=== PATIENT | female | born 1940 | race Native Hawaiian/Other Pacific Islander ===

== ENCOUNTER 2018-12-14 09:06 | Inpatient (IN) | payer SELFPAY ==
[2018-12-14] MEDS ORDERED: Sodium Chloride 0.9% 1,000 ML IV SCH (09:45)
[2018-12-14 10:22] LABS: BASO % 0.7 % (0.0-2.0); EOS % 0.5 % (0.0-4.0); HEMOGLOBIN 12.3 g/dL (11.0-16.0); LYMPH # 1.2 K/uL (1.0-4.3); LYMPH % 19.5 % (20.0-40.0); MEAN CELL VOLUME 95.3 fL (81.0-99.0); MEAN CORPUSCULAR HEMOGLOBIN 31.7 pg (27.0-31.0); MEAN CORPUSCULAR HGB CONC 33.3 g/dL (33.0-37.0); MEAN PLATELET VOLUME 9.2 fL (7.2-11.7); MONO # 0.4 K/uL (0.0-0.8); MONO % 6.1 % (0.0-10.0); NEUT # 4.6 K/uL (1.8-7.0); NEUT % 73.2 % (50.0-75.0); NRBC % 0.1 % (0.0-2.0); RBC 3.89 Mil/uL (3.80-5.20); RED CELL DISTRIBUTION WIDTH 12.9 % (11.5-14.5); WHITE BLOOD COUNT 6.3 K/uL (4.8-10.8)
[2018-12-14] MEDS ORDERED: Sodium Chloride 0.9% 1,000 ML ONE (10:22)
[2018-12-14 10:31] LABS: PROTHROMBIN TIME 11.1 SECONDS (9.7-12.2)
[2018-12-14 10:32] LABS: ALBUMIN 4.6 g/dL (3.5-5.0); ALT/SGPT 13 U/L (9-52); AST/SGOT 32 U/L (14-36); BLOOD UREA NITROGEN 38 mg/dL (7-17); CALCIUM 9.7 mg/dl (8.6-10.4); GFR NON-AFRICAN AMERICAN 31; HDL CHOLESTEROL 64 mg/dL (30-70)
--- NOTE | 2018-12-14 10:35 | CT ---
Date of service: 12/14/2018 PROCEDURE: CT HEAD WITHOUT CONTRAST. HISTORY: L sided numbness, tremors COMPARISON: None available. TECHNIQUE: Axial computed tomography images were obtained through the head/brain without intravenous contrast. Radiation dose: Total exam DLP = 862.5 mGy-cm. This CT exam was performed using one or more of the following dose reduction techniques: Automated exposure control, adjustment of the mA and/or kV according to patient size, and/or use of iterative reconstruction technique. FINDINGS: HEMORRHAGE: No intracranial hemorrhage. BRAIN: There is focal hypodensity in the posterior right temporal parietal lobe suggestive of subacute or old infarct. [id number] volume loss is noted. There is also small encephalomalacia in the anterior aspect of the left basal ganglia at or adjacent to the left caudate head. VENTRICLES: Unremarkable. No hydrocephalus. CALVARIUM: Unremarkable. PARANASAL SINUSES: Unremarkable as visualized. No significant inflammatory changes. MASTOID AIR CELLS: Unremarkable as visualized. No inflammatory changes. OTHER FINDINGS: Diffuse atherosclerotic calcification at the carotid arteries. IMPRESSION: There is no evidence of acute intracranial hemorrhage. Focal encephalomalacia at the right posterior temporal parietal lobe likely represent subacute or old infarct. Small encephalomalacia at or adjacent to the left caudate head also suggestive of lacunar infarct.
[2018-12-14 10:43] LABS: LDL CHOLESTEROL 157 mg/dL (0-129)
--- NOTE | 2018-12-14 10:49 | C.PDOC ---
History Of Present Illness History per daughter, who reports that the patient has been experiencing intermittent tremors over the past 3-4 days. The daughter reports that the patient had tremors that lasted several minutes 3 days ago and then was associated with left sided numbness which resolved. Reports that the patient developed those same symptoms at 1am this morning prompting visit. Denies fever, nausea, vomiting, diarrhea, weakness, chest pain, SOB. Time Seen by Provider: 12/14/18 09:20 Chief Complaint (Nursing): High Blood Pressure History Per: Patient, Family History/Exam Limitations: no limitations Onset/Duration Of Symptoms: Days, Intermittent Episodes Current Symptoms Are (Timing): Better (No tremors now) Recent travel outside of the [place]: No Past Medical History Reviewed: Historical Data, Nursing Documentation, Vital Signs Vital Signs: Last Vital Signs Temp 98 F 12/14/18 09:10 Pulse 80 12/14/18 09:30 Resp 20 12/14/18 09:10 BP 166/79 H 12/14/18 09:10 Pulse Ox 100 12/14/18 09:10 - Medical History PMH: HTN Family History: States: No Known Family Hx - Social History Hx Alcohol Use: No Hx Substance Use: No - Immunization History Hx Tetanus Toxoid Vaccination: No Hx Influenza Vaccination: Yes Hx Pneumococcal Vaccination: Yes Review Of Systems Constitutional: Negative for: Fever, Weakness Eyes: Negative for: Pain, Redness ENT: Negative for: Ear Pain, Mouth Swelling, Throat Swelling Cardiovascular: Negative for: Chest Pain, Palpitations, Edema, Light Headedness Respiratory: Negative for: Cough, Shortness of Breath, SOB with Excertion Genitourinary: Negative for: Dysuria Musculoskeletal: Negative for: Neck Pain Skin: Negative for: Rash, Lesions Neurological: Positive for: Numbness, Other (tremors). Negative for: Weakness Physical Exam - Physical Exam Appears: Non-toxic, No Acute Distress Skin: Normal Color, Warm, No Pale, No Rash Head: Atraumatic, Normacephalic Eye(s): bilateral: Normal Inspection Nose: Normal Oral Mucosa: Moist Tongue: Normal Appearing, No Swelling Lips: Normal Appearing, No Swelling Throat: No Erythema Neck: Normal ROM Chest: Symmetrical, No Deformity, No Tenderness Cardiovascular: Rhythm Regular, No Friction Rub, No Murmur Respiratory: Normal Breath Sounds, No Rales, No Rhonchi, No Stridor, No Wheezing Gastrointestinal/Abdominal: Bowel Sounds (active), Soft, No Tenderness Back: Normal Inspection, No CVA Tenderness Extremity: Normal ROM, No Tenderness, No Swelling Neurological/Psych: Oriented x3, Normal Speech, Normal Cognition, Normal Cranial Nerves, Normal Motor, Normal Sensation, Other (Tongue is midline, normal gaze) Gait: Steady ED Course And Treatment - Laboratory Results Result Diagrams: 12/14/18 10:07 12/14/18 10:07 ECG: Interpreted By Me ECG Rhythm: Sinus Rhythm ECG Interpretation: Normal Interpretation Of ECG: normal axis Rate From EC (bpm) O2 Sat by Pulse Oximetry: 100 (on Ra) Pulse Ox Interpretation: Normal - Radiology CXR: Interpreted by Me CXR Interpretation: No: No Acute Disease, Pnemothorax NIHSS Stroke Scale - Date/Time Evaluation Performed Date Performed: 12/14/18 Time Performed: 10:00 When Was NIHSS Performed: Baseline - How Severe is the Stoke Level of Consciousness: 0=Alert LOC to Questions: 0=Both comments correct LOC to commands: 0=Obeys both correctly Best Gaze: 0=Normal Visual: 0=No visual loss Facial: 0=Normal Motor Arm - Left: 0=No drift Motor Arm - Right: 0=No drift Motor Leg - Left: 0=No drift Motor Leg - Right: 0=No drift Limb Ataxia: 0=Absent Sensory: 0=Normal Best Language: 0=No aphasia Dysarthia: 0=Normal articulation Extinction & Inattention (Neglect): 0=Normal, no object Score: 0 rTPA Inclusion/Exclusion - Refusal of Treatment Patient Refused Treatment: No - Inclusion Criteria for Altepase Patient is 18 years or Older: Yes The Clinical Diagnosis of Ischemic Stroke That is Causing a Potentially Disabling Neurological Deficit: Yes Time of Onset is Well Established to be Less Than 270 Minute Before Treatment Would Begin: No Risk/Benefit Discussed With Patient/Family Member Present: Yes Medical Decision Making Medical Decision Making: Old records reviewed, No prior records seen. The patient reports that she currently has no symptoms at this time. The case was discussed with Dr. Rowan who states that the patient is self pay and is not the PMD, to admit to hospitalist. The case was discussed with Dr. Marina (hospitalist) who agrees to admit the patient to her service. TIA vs. seizures. The case was discussed with Dr. Estes (Neurology oncall) who requests EEG and MRI as this could be infarct vs. seizure. Disposition - Disposition Disposition: HOSPITALIZED Disposition Time: 12:41 Condition: FAIR - POA Present On Arrival: None - Clinical Impression Clinical Impression: TIA (transient ischemic attack), Tremor of both hands
[2018-12-14 12:38] LABS: B-TYPE NATRIURETIC PEPTIDE 255 pg/mL (0-900)
[2018-12-14] MEDS ORDERED: Glucagon Recombinant 1 mg Inj IM PRN (12:43)
[2018-12-14] MEDS ORDERED: Dextrose 50% SYRINGE Inj (50 ml) IV PRN (12:43)
--- NOTE | 2018-12-14 13:06 | RAD ---
Date of service: 12/14/2018 HISTORY: Code Stroke COMPARISON: No prior. FINDINGS: LUNGS: No active pulmonary disease. PLEURA: No significant pleural effusion identified, no pneumothorax apparent. CARDIOVASCULAR: No aortic atherosclerotic calcification present. Normal cardiac size. No pulmonary vascular congestion. OSSEOUS STRUCTURES: No significant abnormalities. VISUALIZED UPPER ABDOMEN: Normal. OTHER FINDINGS: None. IMPRESSION: No active disease.
--- NOTE | 2018-12-14 13:43 | CP.PCM.HP ---
History of Present Illness - History of Present Illness History of Present Illness: This is an 78 yo female, originally from [facility], with past medical hx of hypertension, presenting to [facility] today with chief complaint of numbness. Patient does not speak japanese. She is present today with her daughter , , and family friend. Daughter provides translation. Patient says that one week ago she started feeling numbness in her left hand and along her left leg. This occurred on 12/04/2018. Sensation went away and the next day daughter took patient to see primary doctor Nicky Schwarz. Sensation started again last night around 1 am. Patient was in bed with at the time. Patient and told daughter who was at work and then went to sleep. Upon awaking, patient's daughter brought patient into ER. Denies any associated sx including chest pain, shortness of breath, fevers, chills, blurry vision. The patient denies numbness at time of interview. Denies any previous heart attack or str zachariah. Of note, the patient is a former smoker. PMD: Dr. Nicky Schwarz; last visit approximately 1 week ago PMH: HTN, tobacco abuse PSH: None Allergies: NKDA FH: Non contributory Home meds: losartan/HCTZ Social: former smoker. smoker for over 10 years, but quit some time ago. Denies any significant secondhand smoke exposure. No drinking. No drug use. Born in [facility]. Able to maintain all ADLs. 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 Lives with , daughter, and family friend. Advance directive : none Code status: full code at this time Present on Admission - Present on Admission Any Indicators Present on Admission: No History of DVT/PE: No History of Uncontrolled Diabetes: No Urinary Catheter: No Decubitus Ulcer Present: No Review of Systems - Constitutional Constitutional: absent: Chills, Fever - EENT Eyes: absent: Blurred Vision, Change in Vision Ears: absent: Decreased Hearing, Tinnitus, Abnormal Hearing Nose/Mouth/Throat: absent: Nasal Congestion, Nasal Discharge - Cardiovascular Cardiovascular: absent: Chest Pain, Chest Pain at Rest, Dyspnea - Respiratory Respiratory: absent: Dyspnea, Hemoptysis - Gastrointestinal Gastrointestinal: absent: Abdominal Pain, Constipation - Genitourinary Genitourinary: absent: Change in Urinary Stream, Difficulty Urinating - Musculoskeletal Musculoskeletal: Numbness. absent: Back Pain, Neck Pain - Integumentary Integumentary: absent: Pruritus, Rash - Neurological Neurological: Numbness. absent: Abnormal Gait, Weakness - Psychiatric Psychiatric: absent: Anxiety, Hallucinations - Endocrine Endocrine: absent: Change in Body Appearance, Excessive Sweating - Hematologic/Lymphatic Hematologic: absent: Easy Bleeding, Easy Bruising Past Patient History - Infectious Disease Hx of Infectious Diseases: None - Tetanus Immunizations Tetanus Immunization: Unknown - Past Social History Smoking Status: Former Smoker Chewing Tobacco Use: No Cigar Use: No Alcohol: None Drugs: Denies Home Situation {Lives}: With Family Domestic Violence: Negative - CARDIAC Hx Hypertension: Yes - PSYCHIATRIC Hx Substance Use: No - SURGICAL HISTORY Hx Surgeries: No - ANESTHESIA Hx Anesthesia: No Hx Anesthesia Reactions: No Meds Allergies/Adverse Reactions: Allergies Allergy/AdvReac Type Severity Reaction Status Date / Time No Known Allergies Allergy Verified 12/14/18 09:54 Physical Exam - Constitutional Appears: Non-toxic, No Acute Distress - Head Exam Head Exam: ATRAUMATIC, NORMAL INSPECTION, NORMOCEPHALIC - Eye Exam Eye Exam: EOMI - ENT Exam ENT Exam: Mucous Membranes Moist - Neck Exam Neck exam: Positive for: Full Rom, Normal Inspection - Respiratory Exam Respiratory Exam: NORMAL BREATHING PATTERN. absent: Respiratory Distress - Cardiovascular Exam Cardiovascular Exam: REGULAR RHYTHM, +S1, +S2 - GI/Abdominal Exam GI & Abdominal Exam: Normal Bowel Sounds, Soft. absent: Tenderness - Extremities Exam Extremities exam: Positive for: full ROM, normal inspection - Back Exam Back exam: NORMAL INSPECTION - Neurological Exam Neurological exam: Alert, CN II-XII Intact, Oriented x3 Additional comments: NIH stoke scale of 0- documented at 1:19 PM full muscle strength throughout negative Babinski no nystagmus, facial droop sensation intact heel to matias normal mental status normal speech normal - Psychiatric Exam Psychiatric exam: Normal Affect, Normal Mood - Skin Skin Exam: Dry, Intact, Normal Color, Warm Results - Vital Signs Recent Vital Signs: Last Vital Signs Temp 98.1 F 12/14/18 12:28 Pulse 92 H 12/14/18 13:12 Resp 17 12/14/18 13:12 BP 134/68 12/14/18 13:12 Pulse Ox 98 12/14/18 13:12 - Labs Result Diagrams: 12/14/18 10:07 12/14/18 10:07 Labs: Laboratory Results - last 24 hr 12/14/18 12/14/18 12/14/18 10:07 10:07 10:07 WBC 6.3 RBC 3.89 Hgb 12.3 Hct 37.1 MCV 95.3 MCH 31.7 H MCHC 33.3 RDW 12.9 Plt Count 229 MPV 9.2 Neut % (Auto) 73.2 Lymph % (Auto) 19.5 L [place] % (Auto) 6.1 Eos % (Auto) 0.5 Baso % (Auto) 0.7 Neut # (Auto) 4.6 Lymph # (Auto) 1.2 [place] # (Auto) 0.4 Eos # (Auto) 0.0 Baso # (Auto) 0.0 PT 11.1 INR 1.0 APTT 35 H Sodium 133 Potassium 4.7 Chloride 98 Carbon Dioxide 25 Anion Gap 15 BUN 38 H Creatinine 1.6 H Est GFR ( Amer) 38 Est GFR (Non-Af Amer) 31 POC Glucose (mg/dL) Random Glucose 266 H Hemoglobin A1c Calcium 9.7 Total Bilirubin 0.5 AST 32 ALT 13 Alkaline Phosphatase 82 Troponin I < 0.0120 NT-Pro-B Natriuret Pep 255 Total Protein 9.2 H Albumin 4.6 Globulin 4.5 H Albumin/Globulin Ratio 1.0 Triglycerides 150 H Cholesterol 266 H LDL Cholesterol Direct 157 H HDL Cholesterol 64 Blood Type Antibody Screen 12/14/18 12/14/18 12/14/18 10:07 10:21 10:47 WBC RBC Hgb Hct MCV MCH MCHC RDW Plt Count MPV Neut % (Auto) Lymph % (Auto) [place] % (Auto) Eos % (Auto) Baso % (Auto) Neut # (Auto) Lymph # (Auto) [place] # (Auto) Eos # (Auto) Baso # (Auto) PT INR APTT Sodium Potassium Chloride Carbon Dioxide Anion Gap BUN Creatinine Est GFR ( Amer) Est GFR (Non-Af Amer) POC Glucose (mg/dL) 220 H Random Glucose Hemoglobin A1c 6.8 H Calcium Total Bilirubin AST ALT Alkaline Phosphatase Troponin I NT-Pro-B Natriuret Pep Total Protein Albumin Globulin Albumin/Globulin Ratio Triglycerides Cholesterol LDL Cholesterol Direct HDL Cholesterol Blood Type O POSITIVE Antibody Screen Negative Assessment & Plan - Assessment and Plan (Free Text) Assessment: This is a very pleasant 78 yo Portuguese female with 1. Sensory/loss numbness -likely secondary to TIA vs. stroke vs. seizure/post ictal state -given asa 325 mg in ER -neuro consult. Dr. Estes. recs appreciated -head CT pending -will likely need asa 81 mg po daily -start crestor 5 mg po HS -speech and swallow evaluation -neurochecks -NS 50 cc/hr -SCDs -as long as no hemorrhagic component, will need chemical prophylatic anticoagulation -will likely need EEG and MRI -physical therapy evaluation -NIH stroke scale of 0 -initial troponin negative -will trend troponins and EKGs -fall precautions -seizure precautions -monitor on telemetry floor 2. Hx of DM -previously diabetic status was unknown to pt -HGB a1C -start statin nightly -ISS low dose -hypoglycemia protocol -will need outpatient diabetic preventive measures -a1c already near goal given patient's age 3. Acute renal failure -unclear etiology -unclear previous baseline -NS 50 cc/hr -repeat am labs 4. hx of HTN -hold home losartan/HCTZ -continue to monitor 5. Dyslipidemia -pt has elevated LDL and high TGs -start statin PO HS 5. screening for colon cancer -pt denies any previous colonoscopy 6. screening for breast/cervical cancer -will inquire pap smear/mammogram status 7. GI/DVT ppx -scds -GI not indicated discussed with Dr. Marina
[2018-12-14] MEDS: (Novolin R) Insulin Human Regular 100 units/ml vial SC SCH ×2 (17:45→22:17)
--- NOTE | 2018-12-14 18:22 | CP.PCM.CON ---
History of Present Illness - History of Present Illness History of Present Illness: Neurology Consultation Note: Consult requested by Dr. Marina Mrs. Hill is an 78-year-old woman with a past medical history of smoking and hypertension, who has been having left side numbness on and off for the last 10 days. She was brought in to the ED, and a non-contrast CT scan of the head was done that showed a right parietal lobe subacute to chronic infarct as well as a chronic left caudate infarct. She was admitted for stroke work-up and management. She was not a candidate for IV tPA due to being outside the time window. Review of Systems - Review of Systems All systems: reviewed and no additional remarkable complaints except Past Patient History - Infectious Disease Hx of Infectious Diseases: None - Tetanus Immunizations Tetanus Immunization: Unknown - Past Medical History & Family History Past Medical History?: Yes - Past Social History Smoking Status: Former Smoker - CARDIAC Hx Cardiac Disorders: Yes Hx Hypertension: Yes - PULMONARY Hx Respiratory Disorders: No - NEUROLOGICAL Hx Neurological Disorder: No - HEENT Hx HEENT Problems: No - RENAL Hx Chronic Kidney Disease: No - ENDOCRINE/METABOLIC Hx Endocrine Disorders: No - HEMATOLOGICAL/ONCOLOGICAL Hx Blood Disorders: No - INTEGUMENTARY Hx Dermatological Problems: No - MUSCULOSKELETAL/RHEUMATOLOGICAL Hx Musculoskeletal Disorders: No Hx Falls: No - GASTROINTESTINAL Hx Gastrointestinal Disorders: No - GENITOURINARY/GYNECOLOGICAL Hx Genitourinary Disorders: No - PSYCHIATRIC Hx Psychophysiologic Disorder: No Hx Substance Use: No - SURGICAL HISTORY Hx Surgeries: No - ANESTHESIA Hx Anesthesia: No Hx Anesthesia Reactions: No Meds Allergies/Adverse Reactions: Allergies Allergy/AdvReac Type Severity Reaction Status Date / Time No Known Allergies Allergy Verified 12/14/18 09:54 - Medications Medications: Current Medications Dextrose (Dextrose 50% Inj) 0 ml IV STAT PRN; Protocol PRN Reason: Hypoglycemia Protocol Dextrose (Glutose 15) 0 gm PO ONCE PRN; Protocol PRN Reason: Hypoglycemia Protocol Glucagon (Glucagen Diagnostic Kit) 0 mg IM STAT PRN; Protocol PRN Reason: Hypoglycemia Protocol Dextrose (Dextrose 5% In Water 1000 Ml) 1,000 mls @ 0 mls/hr IV .Q0M PRN; Protocol PRN Reason: Hypoglycemia Protocol Sodium Chloride (Sodium Chloride 0.9%) 1,000 mls @ 50 mls/hr IV .Q20H BILLY Insulin Human Regular (Novolin R) 0 unit SC ACHS BILLY; Protocol Rosuvastatin Calcium (Crestor) 5 mg PO HS BILLY Physical Exam - Constitutional Appears: Well - Head Exam Head Exam: ATRAUMATIC, NORMAL INSPECTION, NORMOCEPHALIC - Eye Exam Eye Exam: EOMI, Normal appearance, PERRL Pupil Exam: NORMAL ACCOMODATION, PERRL - ENT Exam ENT Exam: Mucous Membranes Moist, Normal Exam - Neck Exam Neck exam: Positive for: Normal Inspection - Respiratory Exam Respiratory Exam: Clear to Auscultation Bilateral, NORMAL BREATHING PATTERN - Cardiovascular Exam Cardiovascular Exam: REGULAR RHYTHM, +S1, +S2 - GI/Abdominal Exam GI & Abdominal Exam: Normal Bowel Sounds, Soft. absent: Tenderness - Extremities Exam Extremities exam: Positive for: normal inspection - Back Exam Back exam: NORMAL INSPECTION - Neurological Exam Neurological exam: Alert, CN II-XII Intact, Normal Gait, Oriented x3 Additional comments: Brisk reflexes on the left with upgoing plantar response. Slight pronator drift on the left. Sensation is intact. - Psychiatric Exam Psychiatric exam: Normal Affect, Normal Mood - Skin Skin Exam: Dry, Intact, Normal Color, Warm Results - Vital Signs Recent Vital Signs: Last Vital Signs Temp 98 F 12/14/18 15:51 Pulse 70 12/14/18 17:10 Resp 20 12/14/18 15:51 BP 122/72 12/14/18 15:51 Pulse Ox 98 12/14/18 15:51 - Labs Result Diagrams: 12/14/18 10:07 12/14/18 10:07 Labs: Laboratory Results - last 24 hr 12/14/18 12/14/18 12/14/18 10:07 10:07 10:07 WBC 6.3 RBC 3.89 Hgb 12.3 Hct 37.1 MCV 95.3 MCH 31.7 H MCHC 33.3 RDW 12.9 Plt Count 229 MPV 9.2 Neut % (Auto) 73.2 Lymph % (Auto) 19.5 L Long % (Auto) 6.1 Eos % (Auto) 0.5 Baso % (Auto) 0.7 Neut # (Auto) 4.6 Lymph # (Auto) 1.2 Long # (Auto) 0.4 Eos # (Auto) 0.0 Baso # (Auto) 0.0 PT 11.1 INR 1.0 APTT 35 H Sodium 133 Potassium 4.7 Chloride 98 Carbon Dioxide 25 Anion Gap 15 BUN 38 H Creatinine 1.6 H Est GFR ( Amer) 38 Est GFR (Non-Af Amer) 31 POC Glucose (mg/dL) Random Glucose 266 H Hemoglobin A1c Calcium 9.7 Total Bilirubin 0.5 AST 32 ALT 13 Alkaline Phosphatase 82 Troponin I < 0.0120 NT-Pro-B Natriuret Pep 255 Total Protein 9.2 H Albumin 4.6 Globulin 4.5 H Albumin/Globulin Ratio 1.0 Triglycerides 150 H Cholesterol 266 H LDL Cholesterol Direct 157 H HDL Cholesterol 64 Vitamin B12 > 1000 H TSH 3rd Generation 1.59 Blood Type Antibody Screen 12/14/18 12/14/18 12/14/18 10:07 10:21 10:47 WBC RBC Hgb Hct MCV MCH MCHC RDW Plt Count MPV Neut % (Auto) Lymph % (Auto) Long % (Auto) Eos % (Auto) Baso % (Auto) Neut # (Auto) Lymph # (Auto) Long # (Auto) Eos # (Auto) Baso # (Auto) PT INR APTT Sodium Potassium Chloride Carbon Dioxide Anion Gap BUN Creatinine Est GFR ( Amer) Est GFR (Non-Af Amer) POC Glucose (mg/dL) 220 H Random Glucose Hemoglobin A1c 6.8 H Calcium Total Bilirubin AST ALT Alkaline Phosphatase Troponin I NT-Pro-B Natriuret Pep Total Protein Albumin Globulin Albumin/Globulin Ratio Triglycerides Cholesterol LDL Cholesterol Direct HDL Cholesterol Vitamin B12 TSH 3rd Generation Blood Type O POSITIVE Antibody Screen Negative 12/14/18 12/14/18 16:15 16:35 WBC RBC Hgb Hct MCV MCH MCHC RDW Plt Count MPV Neut % (Auto) Lymph % (Auto) Long % (Auto) Eos % (Auto) Baso % (Auto) Neut # (Auto) Lymph # (Auto) Long # (Auto) Eos # (Auto) Baso # (Auto) PT INR APTT Sodium Potassium Chloride Carbon Dioxide Anion Gap BUN Creatinine Est GFR ( Amer) Est GFR (Non-Af Amer) POC Glucose (mg/dL) 210 H Random Glucose Hemoglobin A1c Calcium Total Bilirubin AST ALT Alkaline Phosphatase Troponin I < 0.0120 NT-Pro-B Natriuret Pep Total Protein Albumin Globulin Albumin/Globulin Ratio Triglycerides Cholesterol LDL Cholesterol Direct HDL Cholesterol Vitamin B12 TSH 3rd Generation Blood Type Antibody Screen Assessment & Plan (1) Ischemic stroke Assessment and Plan: This appears to be subacute and is in the right parietal lobe, which is consistent with her symptoms. I recommend the followin. Telemetry 2. MRI brain without contrast, MRA head/neck without contrast 3. Echocardiogram 4. Check HbA1c, lipid panel, B12, folate, TSH and vitamin D levels 5. Aspirin 81 mg daily & Lipitor 40 mg daily 6. Fluids with NS at 100 mL/hr 7. Normalize BP 8. PT/OT eval and treatment 9. Case management consult Thank you for this consultation. Status: Acute NIHSS Stroke Scale 3 - Date/Time Evaluation Performed Date Performed: 12/14/18 Time Performed: 10:00 - How Severe is the Stroke Level of Consciousness: 0=Alert LOC to Questions: 0=Both comments correct LOC to commands: 0=Obeys both correctly Best Gaze: 0=Normal Visual: 0=No visual loss Facial: 0=Normal Motor Arm - Left: 1=Drift noted before 10 sec Motor Arm - Right: 0=No drift Motor Leg - Left: 0=No drift Motor Leg - Right: 0=No drift Limb Ataxia: 0=Absent Sensory: 0=Normal Best Language: 0=No aphasia Dysarthia: 0=Normal articulation Extinction & Inattention (Neglect): 0=Normal, no object Score: 1
[2018-12-14] MEDS: Sodium Chloride 0.9% 1,000 ML IV SCH (22:19)
--- NOTE | 2018-12-15 07:46 | CP.PCM.PN ---
<Mark Taylor - Last Filed: 12/15/18 16:52> Subjective - Date & Time of Evaluation Date of Evaluation: 12/15/18 Time of Evaluation: 07:45 - Subjective Subjective: HOSPITALIST SERVICE Pt s/e at bedside, said there was a R sided headache, also reported mild tremor in L leg. currently has no complaints. denies cp sob fc nv, denies new onset changes in mental status, vision, memory, speech Objective - Vital Signs/Intake and Output Vital Signs (last 24 hours): Temp Pulse Resp BP Pulse Ox 97.9 F 81 20 145/68 96 12/15/18 04:15 12/15/18 04:15 12/15/18 04:15 12/15/18 04:15 12/15/18 04:15 Intake and Output: 12/15/18 12/15/18 06:59 18:59 Intake Total 1160 Balance 1160 - Medications Medications: Current Medications Aspirin (Aspirin Chewable) 81 mg PO DAILY [facility] Dextrose (Dextrose 50% Inj) 0 ml IV STAT PRN; Protocol PRN Reason: Hypoglycemia Protocol Dextrose (Glutose 15) 0 gm PO ONCE PRN; Protocol PRN Reason: Hypoglycemia Protocol Glucagon (Glucagen Diagnostic Kit) 0 mg IM STAT PRN; Protocol PRN Reason: Hypoglycemia Protocol Dextrose (Dextrose 5% In Water 1000 Ml) 1,000 mls @ 0 mls/hr IV .Q0M PRN; Protocol PRN Reason: Hypoglycemia Protocol Sodium Chloride (Sodium Chloride 0.9%) 1,000 mls @ 50 mls/hr IV .Q20H [facility] Last Admin: 12/14/18 22:19 Dose: 50 mls/hr Insulin Human Regular (Novolin R) 0 unit SC ACHS [facility]; Protocol Last Admin: 12/14/18 22:17 Dose: Not Given Rosuvastatin Calcium (Crestor) 10 mg PO HS [facility] - Labs Labs: 12/14/18 10:07 12/14/18 10:07 PT 11.1 SECONDS (9.7-12.2) 12/14/18 10:07 INR 1.0 12/14/18 10:07 APTT 35 SECONDS (21-34) H 12/14/18 10:07 Assessment and Plan - Assessment and Plan (Free Text) Assessment: 78 yo [place] female admitted for subacute on chronic R pos temporal infarct / possible TIA Right sided Posterior Temporal Infarct: subacute on chronic -likely secondary to TIA vs. stroke vs. seizure/post ictal state -given asa 325 mg in ER -neuro consult. Dr. Estes. recs appreciated recommending plavix 75 asa 81 and crestor 20 recommending interventional neuro consult -head CT : R post Temporal infarct, no bleed -MRA neck (12/15/18): No evidence of hemodynamically significant stenosis in the internal carotid arteries. Patent bilateral vertebral arteries. -MRA Head (12/15/18): 1. No evidence for occlusion. 2. Multifocal short segment stenosis in bilateral posterior cerebral and vertebral arteries, worse in the left P2 segment and right vertebral artery proximal to the origin of right posterior inferior cerebellar artery likely related to severe intracranial atherosclerosis. 3. Severe short segment narrowing in the right distal M1 segment at the bifurcation also likely related to intracranial atherosclerosis. -MRI brain (12/15/18): 1. Subacute right MCA and MCA SHOE COBBLER watershed territory infarctions. 2. Mild chronic microangiopathic changes and mild age-related global parenchymal volume loss. 3. 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 -CT Head (12/14/18): There is no evidence of acute intracranial hemorrhage. Focal encephalomalacia at the right posterior temporal parietal lobe likely represent subacute or old infarct. Small encephalomalacia at or adjacent to the left caudate head also suggestive of lacunar infarct. -neurochecks -NIH stroke scale of 0 -ROMIs neg -fall precautions -seizure precautions -monitor on telemetry floor -PT/OT/TRAINING FACILITATOR eval -asa 81 mg po daily -crestor 10mg po HS -NS 50 cc/hr Hx of DM -HGB a1C 6.8 -ISS low dose -hypoglycemia protocol -will need outpatient diabetic preventive measures Acute renal failure -unclear etiology -unclear previous baseline -NS 50 cc/hr -repeat am labs hx of HTN -hold home losartan/HCTZ -continue to monitor Dyslipidemia -pt has elevated LDL and high TGs -Crestor 20 PO HS GI/DVT ppx -ASA 81 qd -Plavix 75 qd -scds -GI not indicated <Ronak Saavedra - Last Filed: 12/15/18 17:16> Objective - Vital Signs/Intake and Output Vital Signs (last 24 hours): Temp Pulse Resp BP Pulse Ox 97.7 F 75 18 151/73 H 100 12/15/18 15:26 12/15/18 15:26 12/15/18 15:26 12/15/18 15:26 12/15/18 15:26 Intake and Output: 12/15/18 12/15/18 06:59 18:59 Intake Total 1160 Balance 1160 - Medications Medications: Current Medications Aspirin (Aspirin Chewable) 81 mg PO DAILY [facility] Last Admin: 12/15/18 10:05 Dose: 81 mg Clopidogrel Bisulfate (Plavix) 75 mg PO DAILY [facility] Dextrose (Dextrose 50% Inj) 0 ml IV STAT PRN; Protocol PRN Reason: Hypoglycemia Protocol Dextrose (Glutose 15) 0 gm PO ONCE PRN; Protocol PRN Reason: Hypoglycemia Protocol Glucagon (Glucagen Diagnostic Kit) 0 mg IM STAT PRN; Protocol PRN Reason: Hypoglycemia Protocol Dextrose (Dextrose 5% In Water 1000 Ml) 1,000 mls @ 0 mls/hr IV .Q0M PRN; Protocol PRN Reason: Hypoglycemia Protocol Sodium Chloride (Sodium Chloride 0.9%) 1,000 mls @ 50 mls/hr IV .Q20H [facility] Last Admin: 12/15/18 10:05 Dose: Not Given Insulin Human Regular (Novolin R) 0 unit SC ACHS [facility]; Protocol Last Admin: 12/15/18 17:05 Dose: Not Given Rosuvastatin Calcium (Crestor) 20 mg PO HS [facility] - Labs Labs: 12/15/18 07:42 12/15/18 07:42 PT 11.1 SECONDS (9.7-12.2) 12/14/18 10:07 INR 1.0 12/14/18 10:07 APTT 35 SECONDS (21-34) H 12/14/18 10:07 Attending/Attestation - Attestation I have personally seen and examined this patient.: Yes I have fully participated in the care of the patient.: Yes I have reviewed all pertinent clinical information, including history, physical exam and plan: Yes
[2018-12-15] MEDS: (Novolin R) Insulin Human Regular 100 units/ml vial SC SCH ×4 (07:49→21:14)
[2018-12-15 07:55] LABS: BASO % 0.3 % (0.0-2.0); EOS % 0.6 % (0.0-4.0); HEMOGLOBIN 11.3 g/dL (11.0-16.0); LYMPH # 1.2 K/uL (1.0-4.3); MEAN CELL VOLUME 95.5 fL (81.0-99.0); MEAN CORPUSCULAR HEMOGLOBIN 31.3 pg (27.0-31.0); MEAN CORPUSCULAR HGB CONC 32.8 g/dL (33.0-37.0); MEAN PLATELET VOLUME 8.8 fL (7.2-11.7); MONO # 0.4 K/uL (0.0-0.8); MONO % 6.8 % (0.0-10.0); NEUT # 4.4 K/uL (1.8-7.0); NEUT % 72.3 % (50.0-75.0); RBC 3.6 Mil/uL (3.80-5.20); RED CELL DISTRIBUTION WIDTH 13.2 % (11.5-14.5); WHITE BLOOD COUNT 6.1 K/uL (4.8-10.8)
[2018-12-15 08:07] LABS: ALB/GLOB RATIO 1.1 (1.0-2.1); ALBUMIN 3.9 g/dL (3.5-5.0); ALT/SGPT 10 U/L (9-52); AST/SGOT 34 U/L (14-36); BLOOD UREA NITROGEN 23 mg/dL (7-17); CALCIUM 8.8 mg/dl (8.6-10.4); GFR NON-AFRICAN AMERICAN > 60
[2018-12-15] MEDS: Sodium Chloride 0.9% 1,000 ML IV SCH (10:05)
--- NOTE | 2018-12-15 14:08 | MRI ---
Date of service: 12/15/2018 PROCEDURE: MRI BRAIN WITHOUT CONTRAST HISTORY: R posterior subacute on chronic temporal infarct COMPARISON: CT head without contrast from 12/14/2018. TECHNIQUE: Multiplanar, multisequence MR images of the brain were obtained without intravenous contrast enhancement. FINDINGS: HEMORRHAGE: None DWI: There is a wedge-shaped area of restricted diffusion in the right parieto-occipital watershed territory and multiple foci of restricted diffusion in the right posterior temporal lobe. BRAIN PARENCHYMA: There is T2/FLAIR hyperintense signal corresponding to the areas of restricted diffusion. There are mild chronic microangiopathic changes. There is an old lacunar infarction in the left caudate head. There is no mass, mass effect or abnormal extra-axial fluid collection. VENTRICLES: There is mild age-related global parenchymal volume loss and proportionate enlargement of the ventricles and cortical sulci. There are prominent perivascular spaces in the left basal ganglia. CRANIUM: There is normal bone marrow signal pattern. ORBITS: Grossly unremarkable. PARANASAL SINUSES/MASTOIDS: Predominantly clear. VASCULAR SYSTEM: There are normal signal voids in the larger intracranial arteries. OTHER FINDINGS: None. IMPRESSION: 1. Subacute right MCA and MCA TREE TAPPING LABORER watershed territory infarctions. 2. Mild chronic microangiopathic changes and mild age-related global parenchymal volume loss. 3. 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
--- NOTE | 2018-12-15 14:22 | MRI ---
Date of service: 12/15/2018 PROCEDURE: Magnetic Resonance Angiography Brain HISTORY: R posterior subacute on chronic temporal infarct COMPARISON: None available. TECHNIQUE: 3D time of flight MR angiography of the intracranial arteries was performed. Rotating maximum intensity projection images were generated. FINDINGS: INTERNAL CAROTID ARTERIES: Normal flow related signal. There is mild asymmetric narrowing of the right internal carotid artery. The skull base, petrous, cavernous and supraclinoid segments are bilaterally widely patient. ANTERIOR CEREBRAL ARTERIES: Normal flow related signal. The right A1 segment is aplastic, an anatomic variant. The left A1 and bilateral A2 segments are widely patent. Smaller distal branches unremarkable, as visualized. MIDDLE CEREBRAL ARTERIES: Normal flow related signal. There is severe short segment narrowing in the right distal M1 segment at the bifurcation M1 and M2 segments are widely patent. Perisylvian branches grossly symmetric. POSTERIOR CIRCULATION: Basilar Artery: Normal flow related signal. Normal in caliber and widely patent. Distal Vertebral Arteries: Normal flow related signal. Multifocal narrowing in both vertebral arteries, with severe short segment narrowing in the right mid vertebral artery proximal to the origin posterior inferior cerebellar artery. Posterior Cerebral Arteries: Normal flow related signal. Multifocal short segment narrowing, worse in the left posterior cerebral artery with most severe multifocal narrowing in the left P2 segment. Posterior Inferior Cerebellar Arteries: Normal flow related signal. Widely patent. ANEURYSM/ VASCULAR MALFORMATIONS: None. OTHER FINDINGS: None. IMPRESSION: 1. No evidence for occlusion. 2. Multifocal short segment stenosis in bilateral posterior cerebral and vertebral arteries, worse in the left P2 segment and right vertebral artery proximal to the origin of right posterior inferior cerebellar artery likely related to severe intracranial atherosclerosis. 3. Severe short segment narrowing in the right distal M1 segment at the bifurcation also likely related to intracranial atherosclerosis.
--- NOTE | 2018-12-15 14:23 | PCM.STROKE ---
Interval History Unable to obtain (state reason): symptoms started approx 10-11 days ago per daughter Additional history per family/caregiver (name): daughter, Ruthie Hill No other interval changes in current, PMHx, FHx, SocHx, ROS: other than on note by: (initial neuro consultation note) - Treatment DVT Prophylaxis: Sequential compression device in place bilaterally Antiplatelet: Acetylsalicylic acid (ASA), Plavix Statin: Rosuvastatin - Education Written Stroke Education provided regarding: personal risk factors, stroke warning sign/symptoms, how to activate emergency medical services, need to follow up after discharge Hx Atrial Fibrillation: No Hx Atrial Flutter: No - Therapy Notes Physical therapy notes date reviewed: 12/15/18 I have reviewed care of the patient with: Dr. Pimentel NIHSS Stroke Scale - Date/Time Evaluation Performed Date Performed: 12/15/18 Time Performed: 15:01 When Was NIHSS Performed: Re-evaluation - How Severe is the Stroke Level of Consciousness: 0=Alert LOC to Questions: 0=Both comments correct LOC to commands: 0=Obeys both correctly Best Gaze: 0=Normal Visual: 0=No visual loss Facial: 0=Normal Motor Arm - Left: 0=No drift Motor Arm - Right: 0=No drift Motor Leg - Left: 0=No drift Motor Leg - Right: 0=No drift Limb Ataxia: 0=Absent Sensory: 0=Normal Best Language: 0=No aphasia Dysarthia: 0=Normal articulation Extinction & Inattention (Neglect): 0=Normal, no object Score: 0 Exam - Vital Sign Vital Signs: Temp Pulse Resp BP Pulse Ox 97.9 F 91 H 20 151/70 H 95 12/15/18 07:30 12/15/18 07:43 12/15/18 07:30 12/15/18 07:30 12/15/18 07:30 Constitutional: No distress, Normal appearing Ophthalmoscopic: absent: papilledema, hemorrhage Right Pupil: Reactive Right Pupil Size (in mm): 2 Left Pupil: Reactive Left Pupil Size (in mm): 2 Cardiovascular: Regular rate & rhythm Mental Status: Normal: Orientation, Memory, Attention, Language, Fund of Knowledge Cranial Nerve: Normal: Visual Arnold, Extraocular movement intact, Facial Sensation, Facial Strength, Hearing, Shoulder Strength Motor: Tone, Bulk Neuro motor strength exam: Left Upper Extremity: 5 (bioprocess development engineer 5/5), Right Upper Extremity: 5 (bioprocess development engineer 5/5), Left Lower Extremity: 4 (plantar flexion 4/5), Right Lower Extremity: 4 (plantar flexion 4/5) DTR: Patellar Left: 1+, Patellar Right: 1+ Flexor Plantar Reflex: Normal Coordination: Finger/nose Vascular Risk: Hypertension, Diabetes Mellitus, Lipids, Age - Data reviewed Laboratory results: 12/15/18 07:42 12/15/18 07:42 Triglycerides 150 mg/dL (0-149) H 12/14/18 10:07 Cholesterol 266 mg/dL (0-199) H 12/14/18 10:07 LDL Cholesterol Direct 157 mg/dL (0-129) H 12/14/18 10:07 HDL Cholesterol 64 mg/dL (30-70) 12/14/18 10:07 Hemoglobin A1c 6.8 % (4.2-6.5) H 12/14/18 10:07 MRI images: Viewed and interpreted by me (reviewed with Dr. Pimentel) MRA/CTA images: Viewed and interpreted by me (reviewed with Dr. Pimentel) Echo: done but no results yet Assessment and Plan (1) Ischemic stroke Assessment & Plan: Imaging reviewed: -MRA neck (12/15/18): No evidence of hemodynamically significant stenosis in the internal carotid arteries. Patent bilateral vertebral arteries. -MRA Head (12/15/18): 1. No evidence for occlusion. 2. Multifocal short segment stenosis in bilateral posterior cerebral and vertebral arteries, worse in the left P2 segment and right vertebral artery proximal to the origin of right posterior inferior cerebellar artery likely related to severe intracranial atherosclerosis. 3. Severe short segment narrowing in the right distal M1 segment at the bifurcation also likely related to intracranial atherosclerosis. -MRI brain (12/15/18): 1. Subacute right MCA and MCA BOMB TECHNICIAN watershed territory infarctions. 2. Mild chronic microangiopathic changes and mild age-related global parenchymal volume loss. 3. 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 -CT Head (12/14/18): There is no evidence of acute intracranial hemorrhage. Focal encephalomalacia at the right posterior temporal parietal lobe likely represent subacute or old infarct. Small encephalomalacia at or adjacent to the left caudate head also suggestive of lacunar infarct. -Load with Plavix 300 mg PO once now, then continue Plavix at 75 mg PO daily (start tomorrow morning). -Continue ASA and Statin. -Continue PT/OT/ST per stroke protocol. -ECHO done, pending results. -Recommend a cardiology consultation and workup as this is possibly cardio- embolic. No history of Afib per pt and family. -Continue telemetry monitoring for now to detect any arrhythmias. -Control BP and BS control; address and control other risk factors. -DVT ppx; has SCDs on B/L. -Notify neuro team of any acute changes in pt's condition. Josefina Rivera DNP, SLACKLINE OPERATOR Case discussed with Dr. Pimentel Status: Acute
--- NOTE | 2018-12-15 14:33 | MRI ---
Date of service: 12/15/2018 PROCEDURE: MR Angiography of the neck without contrast HISTORY: R posterior subacute on chronic temporal infarct COMPARISON: None available. TECHNIQUE: 3D [id number] angiography of the neck was performed. Rotating maximum intensity projection images of the cervical carotid and vertebral arteries were generated. The origins of the common carotid arteries were not visualized, which is a limitation inherent to the non-contrast time of flight technique. FINDINGS: RIGHT CAROTID ARTERIES: Common Carotid Artery: Normal. Carotid Bifurcation: Normal. Internal Carotid Artery:Normal. External Carotid Artery (proximal branches): Normal. LEFT CAROTID ARTERIES: Common Carotid Artery: Normal. Carotid Bifurcation: Normal. Internal Carotid Artery:Normal. External Carotid Artery (proximal branches): Normal. VERTEBRAL ARTERIES: Right Vertebral Artery: Normal. Left Vertebral Artery: Normal. OTHER FINDINGS: None. IMPRESSION: No evidence of hemodynamically significant stenosis in the internal carotid arteries. Patent bilateral vertebral arteries.
[2018-12-15 16:28] VITALS: TEMP 97.7
--- NOTE | 2018-12-15 22:40 | CARD ---
APPROVED REPORT Date of service: 12/15/2018 EXAM: Two-dimensional and M-mode echocardiogram with Doppler and color Doppler. INDICATION CVA/TIA RISK FACTORS Hypertension Diabetes 2D DIMENSIONS IVSd0.7 (0.7-1.1cm)LVDd3.4 (3.9-5.9cm) PWd0.8 (0.7-1.1cm)LA Rjqsvd20 (18-58mL) LVDs1.8 (2.5-4.0cm)FS (%) 46.6 % LVEF (%)79.1 (>50%)LVEF (Miller's)77.66 % IVC0.00 cm M-Mode DIMENSIONS Left Atrium (MM)3.21 (2.5-4.0cm)IVSd0.72 (0.7-1.1cm) Aortic Root2.69 (2.2-3.7cm)LVDd4.06 (4.0-5.6cm) Aortic Cusp Exc.1.68 (1.5-2.0cm)PWd0.93 (0.7-1.1cm) FS (%) 38 %LVDs2.51 (2.0-3.8cm) LVEF (%)69 (>50%) Aortic Valve AoV Peak Nikngsuo199.2cm/sAoV VTI40.3cmAO Peak GR.16mmHg AO Mean GR.6mmHgAI P 1/2 [id number] Mitral Valve MV E Pudjilee51.7cm/sMV A Htzckopd077.6cm/sE/A ratio0.7 TDI E/Lateral E'0.0E/Medial E'0.0 Tricuspid Valve TR Peak [id number]/sTR Peak Gr.[id number] LEFT VENTRICLE The left ventricle is normal size. There is normal left ventricular wall thickness. Left ventricle systolic function is normal. The Ejection Fraction is >70%. There is normal LV segmental wall motion. Tissue Doppler imaging reveals abnormal left ventricular diastolic dysfunction. RIGHT VENTRICLE The right ventricle is normal size. There is normal right ventricular wall thickness. The right ventricular systolic function is normal. ATRIA The left atrium size is normal. The right atrium size is normal. The interatrial septum is intact with no evidence for an atrial septal defect. AORTIC VALVE The aortic valve is normal in structure. There is mild aortic regurgitation. There is no aortic valvular stenosis. MITRAL VALVE The mitral valve is normal in structure. There is no evidence of mitral valve prolapse. There is no mitral valve stenosis. Mitral regurgitation is mild. TRICUSPID VALVE The tricuspid valve is normal in structure. There is mild tricuspid regurgitation. Right ventricular systolic pressure is estimated at 30-40 mmHg. There is mild pulmonary hypertension. PULMONIC VALVE The pulmonic valve is not well visualized. There is trace pulmonic valvular regurgitation. GREAT VESSELS The aortic root is normal in size. PERICARDIAL EFFUSION There is no significant pericardial effusion. <Conclusion> Left ventricle systolic function is normal. The Ejection Fraction is >70%. Diastolic dysfunction. There is mild aortic regurgitation. Mitral regurgitation is mild. There is mild tricuspid regurgitation. There is mild pulmonary hypertension. There is trace pulmonic valvular regurgitation.
[2018-12-16 01:19] VITALS: BP 132/74; RESP 20; O2SAT 98
--- NOTE | 2018-12-16 07:31 | CP.PCM.DIS ---
<Mark Taylor - Last Filed: 12/16/18 14:12> Provider - Provider Date of Admission: 12/14/18 12:13 Attending physician: Brennan Crews MD Consults: 12/14/18 12:25 Neurology Consult Routine Comment: Consulting Provider: Doyle Estes Consulting Physician: Doyle Estes Reason for Consult: TIA, L sided numbness resolved, tremors 12/15/18 15:42 Neurointerventional consult Routine Consulting Provider: Sowmya Giraldo Consulting Physician: Sowmya Giraldo Reason for Consult: Stenosis nadine posterior cerebral/vertebral arteries; watershed stroke Time Spent in preparation of Discharge (in minutes): 45 Diagnosis - Discharge Diagnosis (1) Diabetes Status: Chronic (2) HTN (hypertension) Status: Chronic (3) TIA (transient ischemic attack) Status: Acute Hospital Course - Lab Results Lab Results: Most Recent Lab Values WBC 6.1 K/uL (4.8-10.8) 12/15/18 07:42 RBC 3.60 Mil/uL (3.80-5.20) L 12/15/18 07:42 Hgb 11.3 g/dL (11.0-16.0) 12/15/18 07:42 Hct 34.4 % (34.0-47.0) 12/15/18 07:42 MCV 95.5 fL (81.0-99.0) 12/15/18 07:42 MCH 31.3 pg (27.0-31.0) H 12/15/18 07:42 MCHC 32.8 g/dL (33.0-37.0) L 12/15/18 07:42 RDW 13.2 % (11.5-14.5) 12/15/18 07:42 Plt Count 217 K/uL (130-400) 12/15/18 07:42 MPV 8.8 fL (7.2-11.7) 12/15/18 07:42 Neut % (Auto) 72.3 % (50.0-75.0) 12/15/18 07:42 Lymph % (Auto) 20.0 % (20.0-40.0) 12/15/18 07:42 Tama % (Auto) 6.8 % (0.0-10.0) 12/15/18 07:42 Eos % (Auto) 0.6 % (0.0-4.0) 12/15/18 07:42 Baso % (Auto) 0.3 % (0.0-2.0) 12/15/18 07:42 Neut # (Auto) 4.4 K/uL (1.8-7.0) 12/15/18 07:42 Lymph # (Auto) 1.2 K/uL (1.0-4.3) 12/15/18 07:42 Tama # (Auto) 0.4 K/uL (0.0-0.8) 12/15/18 07:42 Eos # (Auto) 0.0 K/uL (0.0-0.7) 12/15/18 07:42 Baso # (Auto) 0.0 K/uL (0.0-0.2) 12/15/18 07:42 PT 11.1 SECONDS (9.7-12.2) 12/14/18 10:07 INR 1.0 12/14/18 10:07 APTT 35 SECONDS (21-34) H 12/14/18 10:07 Sodium 136 mmol/L (132-148) 12/15/18 07:42 Potassium 4.2 mmol/L (3.6-5.2) 12/15/18 07:42 Chloride 105 mmol/L (98-107) 12/15/18 07:42 Carbon Dioxide 23 mmol/L (22-30) 12/15/18 07:42 Anion Gap 11 (10-20) 12/15/18 07:42 BUN 23 mg/dL (7-17) H 12/15/18 07:42 Creatinine 0.9 mg/dL (0.7-1.2) 12/15/18 07:42 Est GFR ( Amer) > 60 12/15/18 07:42 Est GFR (Non-Af Amer) > 60 12/15/18 07:42 POC Glucose (mg/dL) 149 mg/dL (65-110) H 12/15/18 06:24 Random Glucose 186 mg/dL (65-105) H D 12/15/18 07:42 Hemoglobin A1c 6.8 % (4.2-6.5) H 12/14/18 10:07 Calcium 8.8 mg/dl (8.6-10.4) 12/15/18 07:42 Phosphorus 3.3 mg/dL (2.5-4.5) 12/15/18 07:42 Magnesium 1.8 mg/dL (1.6-2.3) 12/15/18 07:42 Total Bilirubin 0.5 mg/dL (0.2-1.3) 12/15/18 07:42 AST 34 U/L (14-36) 12/15/18 07:42 ALT 10 U/L (9-52) 12/15/18 07:42 Alkaline Phosphatase 74 U/L (38-126) 12/15/18 07:42 Troponin I < 0.0120 ng/mL (0.00-0.120) 12/14/18 21:48 NT-Pro-B Natriuret Pep 255 pg/mL (0-900) 12/14/18 10:07 Total Protein 7.6 g/dL (6.3-8.3) 12/15/18 07:42 Albumin 3.9 g/dL (3.5-5.0) 12/15/18 07:42 Globulin 3.7 gm/dL (2.2-3.9) 12/15/18 07:42 Albumin/Globulin Ratio 1.1 (1.0-2.1) 12/15/18 07:42 Triglycerides 150 mg/dL (0-149) H 12/14/18 10:07 Cholesterol 266 mg/dL (0-199) H 12/14/18 10:07 LDL Cholesterol Direct 157 mg/dL (0-129) H 12/14/18 10:07 HDL Cholesterol 64 mg/dL (30-70) 12/14/18 10:07 Vitamin B12 > 1000 pg/mL (239-931) H 12/14/18 10:07 25-OH Vitamin D Total 37.4 NG/ML (30.0-100.0) 12/15/18 16:49 Folate > 20.0 ng/mL 12/15/18 16:49 TSH 3rd Generation 1.59 mIU/L (0.46-4.68) 12/14/18 10:07 RPR Nonreactive (NONREACTIVE) 12/15/18 16:49 Blood Type O POSITIVE 12/14/18 10:47 Antibody Screen Negative 12/14/18 10:47 - Hospital Course Hospital Course: This is an 78 yo female, originally from [facility], with past medical hx of hypertension, presenting to [facility] [place] today with chief complaint of numbness. Patient does not speak indonesian. She is present today with her daughter, , and family friend. Daughter provides translation. Patient says that one week ago she started feeling numbness in her left hand and along her left leg. This occurred on 12/04/2018. Sensation went away and the next day daughter took patient to see primary doctor Nicky Schwarz. Sensation started again last night around 1 am. Patient was in bed with at the time. Shaun whitley and told daughter who was at work and then went to sleep. Upon awaking, patient's daughter brought patient into ER. Denies any associated sx including chest pain, shortness of breath, fevers, chills, blurry vision. The patient denies numbness at time of interview. Denies any previous heart attack or stroke. Of note, the patient is a former smoker. PMD: Dr. Nicky Schwarz; last visit approximately 1 week ago PMH: HTN, tobacco abuse PSH: None Allergies: NKDA FH: Non contributory Home meds: losartan/HCTZ Social: former smoker. smoker for over 10 years, but quit some time ago. Denies any significant secondhand smoke exposure. No drinking. No drug use. Born in [facility]. Able to maintain all ADLs. 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 Lives with , daughter, and family friend. Advance directive : none Code status: full code at this time For TIA: Pt was given ASA 325, plavix 150 and crestor 20 and for DM :given sl iding scale insulin and for HTN: monitored on Tele, dc home on losartan/hctz -head CT : R post Temporal infarct, no bleed -MRA neck (12/15/18): No evidence of hemodynamically significant stenosis in the internal carotid arteries. Patent bilateral vertebral arteries. -MRA Head (12/15/18): 1. No evidence for occlusion. 2. Multifocal short segment stenosis in bilateral posterior cerebral and vertebral arteries, worse in the left P2 segment and right vertebral artery proximal to the origin of right posterior inferior cerebellar artery likely related to severe intracranial atherosclerosis. 3. Severe short segment narrowing in the right distal M1 segment at the bifurcation also likely related to intracranial atherosclerosis. -MRI brain (12/15/18): 1. 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 2. Mild chronic microangiopathic changes and mild age-related global parenchymal volume loss. 3. 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 -CT Head (12/14/18): There is no evidence of acute intracranial hemorrhage. Focal encephalomalacia at the right posterior temporal parietal lobe likely represent subacute or old infarct. Small encephalomalacia at or adjacent to the left caudate head also suggestive of lacunar infarct. -Echo 12/14/18: Mild pulm, mitral, tricusp valvular regurg w/ mild diastolic dysfuction, EF 70% Pt dc home on ASA 81, Plavix 75 and crestor 20 home losartan/hctz f/u w/ neuro Korya and cardio Polo and PMD Cook within 7 days THIS IS A SUMMARY PLEASE REFER TO [facility] Discharge Exam - Head Exam Head Exam: ATRAUMATIC, NORMAL INSPECTION, NORMOCEPHALIC - Additional Findings Additional findings: Constitutional: No distress, Normal appearing Ophthalmoscopic: absent: papilledema, hemorrhage Right Pupil: Reactive Right Pupil Size (in mm): 2 Left Pupil: Reactive Left Pupil Size (in mm): 2 Cardiovascular: Regular rate & rhythm Mental Status: Normal: Orientation, Memory, Attention, Language, Fund of Knowledge Cranial Nerve: Normal: Visual Arnold, Extraocular movement intact, Facial Sensation, Facial Strength, Hearing, Shoulder Strength Motor: Tone, Bulk Neuro motor strength exam: Left Upper Extremity: 5 (instructional paraprofessional 5/5), Right Upper Extremity: 5 (instructional paraprofessional 5/5), Left Lower Extremity: 4 (plantar flexion 4/5), Right Lower Extremity: 4 (plantar flexion 4/5) DTR: Patellar Left: 1+, Patellar Right: 1+ Flexor Plantar Reflex: Normal Coordination: Finger/nose Vascular Risk: Hypertension, Diabetes Mellitus, Lipids, Age Discharge Plan - Discharge Medications Prescriptions: RX: Aspirin [Aspirin Chewable] 81 mg PO DAILY #30 chew RX: Clopidogrel [Plavix] 75 mg PO DAILY #30 tab RX: Losartan/Hydrochlorothiazide [Losartan-Hctz 50-12.5 mg Tab] 1 each PO DAILY #30 tablet RX: Rosuvastatin Calcium [Crestor] 20 mg PO HS #14 tab - Follow Up Plan Condition: FAIR Disposition: HOME/ ROUTINE Instructions: Heart Healthy Diet, Stroke (DC), Transient Ischemic Attack (DC), Aspirin, Clopidogrel, Losartan and Hydrochlorothiazide, Rosuvastatin Additional Instructions: Pt is to be discharged home on the following medications Aspirin [Aspirin Chewable] 81 mg PO DAILY #30 chew take @ 8am Clopidogrel [Plavix] 75 mg PO DAILY #30 tab take @ 8am Losartan/Hydrochlorothiazide [Losartan-Hctz 50-12.5 mg Tab] 1 each PO DAILY #30 tablet take @ 8am Rosuvastatin Calcium [Crestor] 20 mg PO HS #14 tab take @ 8pm Pt is to follow up withing [address] Estes Neurology Pt is to follow up withing [address] Cuellar Cardiology Pt is to follow up withing [address] Cook PMD If symptoms return, please seek medical attention immediately Referrals: Kranthi Cuellar MD [Staff Provider] - Kera Cook MD [Family Provider] - Doyle Estes MD [Staff Provider] - <Ronak Saavedra - Last Filed: 12/16/18 15:00> Provider - Provider Date of Admission: 12/14/18 12:13 Attending physician: Brennan Crews MD Consults: 12/14/18 12:25 Neurology Consult Routine Comment: Consulting Provider: Doyle Estes Consulting Physician: Doyle Estes Reason for Consult: TIA, L sided numbness resolved, tremors 12/15/18 15:42 Neurointerventional consult Routine Consulting Provider: Sowmya Giraldo Consulting Physician: Sowmya Giraldo Reason for Consult: Stenosis nadine posterior cerebral/vertebral arteries; watershed stroke Hospital Course - Lab Results Lab Results: Most Recent Lab Values WBC 6.4 K/uL (4.8-10.8) 12/16/18 06:44 RBC 3.51 Mil/uL (3.80-5.20) L 12/16/18 06:44 Hgb 11.0 g/dL (11.0-16.0) 12/16/18 06:44 Hct 33.4 % (34.0-47.0) L 12/16/18 06:44 MCV 95.2 fL (81.0-99.0) 12/16/18 06:44 MCH 31.3 pg (27.0-31.0) H 12/16/18 06:44 MCHC 32.9 g/dL (33.0-37.0) L 12/16/18 06:44 RDW 12.7 % (11.5-14.5) 12/16/18 06:44 Plt Count 197 K/uL (130-400) 12/16/18 06:44 MPV 8.6 fL (7.2-11.7) 12/16/18 06:44 Neut % (Auto) 70.5 % (50.0-75.0) 12/16/18 06:44 Lymph % (Auto) 19.3 % (20.0-40.0) L 12/16/18 06:44 Tama % (Auto) 8.7 % (0.0-10.0) 12/16/18 06:44 Eos % (Auto) 1.3 % (0.0-4.0) 12/16/18 06:44 Baso % (Auto) 0.2 % (0.0-2.0) 12/16/18 06:44 Neut # (Auto) 4.5 K/uL (1.8-7.0) 12/16/18 06:44 Lymph # (Auto) 1.2 K/uL (1.0-4.3) 12/16/18 06:44 Tama # (Auto) 0.6 K/uL (0.0-0.8) 12/16/18 06:44 Eos # (Auto) 0.1 K/uL (0.0-0.7) 12/16/18 06:44 Baso # (Auto) 0.0 K/uL (0.0-0.2) 12/16/18 06:44 PT 11.8 SECONDS (9.7-12.2) 12/16/18 06:44 INR 1.1 12/16/18 06:44 APTT 33 SECONDS (21-34) 12/16/18 06:44 Sodium 134 mmol/L (132-148) 12/16/18 06:44 Potassium 3.8 mmol/L (3.6-5.2) 12/16/18 06:44 Chloride 105 mmol/L (98-107) 12/16/18 06:44 Carbon Dioxide 22 mmol/L (22-30) 12/16/18 06:44 Anion Gap 11 (10-20) 12/16/18 06:44 BUN 18 mg/dL (7-17) H 12/16/18 06:44 Creatinine 0.7 mg/dL (0.7-1.2) 12/16/18 06:44 Est GFR ( Amer) > 60 12/16/18 06:44 Est GFR (Non-Af Amer) > 60 12/16/18 06:44 POC Glucose (mg/dL) 168 mg/dL (65-110) H 12/16/18 11:18 Random Glucose 132 mg/dL (65-105) H D 12/16/18 06:44 Hemoglobin A1c 6.8 % (4.2-6.5) H 12/14/18 10:07 Calcium 8.8 mg/dl (8.6-10.4) 12/16/18 06:44 Phosphorus 3.1 mg/dL (2.5-4.5) 12/16/18 06:44 Magnesium 1.7 mg/dL (1.6-2.3) 12/16/18 06:44 Total Bilirubin 0.5 mg/dL (0.2-1.3) 12/16/18 06:44 AST 26 U/L (14-36) 12/16/18 06:44 ALT 12 U/L (9-52) 12/16/18 06:44 Alkaline Phosphatase 68 U/L (38-126) 12/16/18 06:44 Troponin I < 0.0120 ng/mL (0.00-0.120) 12/14/18 21:48 NT-Pro-B Natriuret Pep 255 pg/mL (0-900) 12/14/18 10:07 Total Protein 7.0 g/dL (6.3-8.3) 12/16/18 06:44 Albumin 3.7 g/dL (3.5-5.0) 12/16/18 06:44 Globulin 3.3 gm/dL (2.2-3.9) 12/16/18 06:44 Albumin/Globulin Ratio 1.1 (1.0-2.1) 12/16/18 06:44 Triglycerides 82 mg/dL (0-149) D 12/16/18 06:44 Cholesterol 207 mg/dL (0-199) H 12/16/18 06:44 LDL Cholesterol Direct 128 mg/dL (0-129) 12/16/18 06:44 HDL Cholesterol 51 mg/dL (30-70) 12/16/18 06:44 Vitamin B12 > 1000 pg/mL (239-931) H 12/14/18 10:07 25-OH Vitamin D Total 37.4 NG/ML (30.0-100.0) 12/15/18 16:49 Folate > 20.0 ng/mL 12/15/18 16:49 TSH 3rd Generation 1.59 mIU/L (0.46-4.68) 12/14/18 10:07 RPR Nonreactive (NONREACTIVE) 12/15/18 16:49 Blood Type O POSITIVE 12/14/18 10:47 Antibody Screen Negative 12/14/18 10:47 Attending/Attestation - Attestation I have personally seen and examined this patient.: Yes I have fully participated in the care of the patient.: Yes I have reviewed all pertinent clinical information, including history, physical exam and plan: Yes
[2018-12-16 07:40] LABS: BASO % 0.2 % (0.0-2.0); EOS # 0.1 K/uL (0.0-0.7); EOS % 1.3 % (0.0-4.0); LYMPH # 1.2 K/uL (1.0-4.3); LYMPH % 19.3 % (20.0-40.0); MEAN CELL VOLUME 95.2 fL (81.0-99.0); MEAN CORPUSCULAR HEMOGLOBIN 31.3 pg (27.0-31.0); MEAN CORPUSCULAR HGB CONC 32.9 g/dL (33.0-37.0); MEAN PLATELET VOLUME 8.6 fL (7.2-11.7); MONO # 0.6 K/uL (0.0-0.8); MONO % 8.7 % (0.0-10.0); NEUT # 4.5 K/uL (1.8-7.0); NEUT % 70.5 % (50.0-75.0); RBC 3.51 Mil/uL (3.80-5.20); RED CELL DISTRIBUTION WIDTH 12.7 % (11.5-14.5); WHITE BLOOD COUNT 6.4 K/uL (4.8-10.8)
[2018-12-16 07:42] LABS: INR 1.1; PROTHROMBIN TIME 11.8 SECONDS (9.7-12.2)
[2018-12-16 07:53] LABS: ALB/GLOB RATIO 1.1 (1.0-2.1); ALBUMIN 3.7 g/dL (3.5-5.0); ALT/SGPT 12 U/L (9-52); AST/SGOT 26 U/L (14-36); BLOOD UREA NITROGEN 18 mg/dL (7-17); CALCIUM 8.8 mg/dl (8.6-10.4); GFR NON-AFRICAN AMERICAN > 60; HDL CHOLESTEROL 51 mg/dL (30-70)
[2018-12-16 08:00] LABS: LDL CHOLESTEROL 128 mg/dL (0-129)
[2018-12-16] MEDS: (Novolin R) Insulin Human Regular 100 units/ml vial SC SCH ×2 (08:25→12:09)
[2018-12-16 13:02] VITALS: PULSE 87
--- NOTE | 2018-12-16 23:53 | CARD ---
APPROVED REPORT Date of service: 12/14/2018 EKG Measurement Heart [id number] <Conclusion> Normal sinus rhythm Normal ECG
--- NOTE | 2018-12-16 23:58 | CARD ---
APPROVED REPORT Date of service: 12/14/2018 EKG Measurement Heart [id number] RI [id number] <Conclusion> Normal sinus rhythm Normal ECG
--- NOTE | 2018-12-17 | CARD ---
APPROVED REPORT Date of service: 12/14/2018 EKG Measurement Heart [id number] <Conclusion> Normal sinus rhythm Normal ECG
--- NOTE | 2018-12-17 08:59 | CP.PCM.PCO ---
Physician Communication Note - Physician Communication Note Physician Communication Note: Imaging reviewed. Diffuse ICAD. Recommend Asa, Plavix and statin
== END 2018-12-16 14:35 | disposition home or self-care (01) | DRG 69 ==
LOC: C.ER 09:06 → C.6T 12:13
PROVIDERS: ADMIT Internal Medicine; ATTEND Internal Medicine
DX: G45.9 Transient cerebral ischemic attack, unspecified (principal); N17.9 Acute kidney failure, unspecified; I67.2 Cerebral atherosclerosis; I10 Essential (primary) hypertension; E11.51 Type 2 diabetes mellitus with diabetic peripheral angiopathy without gangrene; E78.5 Hyperlipidemia, unspecified; Z79.02 Long term (current) use of antithrombotics/antiplatelets; Z79.82 Long term (current) use of aspirin; Z86.73 Personal history of transient ischemic attack (TIA), and cerebral infarction without residual deficits; Z87.891 Personal history of nicotine dependence